=== PATIENT | male | born 1985 | race American Indian/Alaskan Native ===

== ENCOUNTER 2018-08-02 13:07 | Inpatient (IN) | payer OTHER ==
[2018-08-02 13:11] VITALS: BMI 20.8
--- NOTE | 2018-08-02 13:45 | C.PDOC ---
History Of Present Illness 33 y/o male with PMH of MS and depression presents to the ED sent by his primary Dr. Mathias for concerns of MS flare. Pt states he has been feeling overwhelmed and depressed over the last few months because of his MS diagnosis and overwhelming stress at home. States he has thoughts and a plan to hurt himself but is unwilling to disclose the plan. History of one suicide attempt in the past 5-[address] Mathias states that the patient's affect is not typical and she has concerns for worsening of the patient's MS. Admits to alcohol and drug use yesterday. Patient's only physical complaints are lower back pain and left shoulder pain that he states are chronic. Denies HI, hallucinations, seizures, fevers, chills, abdominal pain, chest pain, SOB, nausea, vomiting, weakness, numbness, paresthesias, headache, vision changes, or any other associated symptoms. Time Seen by Provider: 08/02/18 13:17 Chief Complaint (Nursing): Psychiatric Evaluation History Per: Patient History/Exam Limitations: no limitations Past Medical History Reviewed: Historical Data, Nursing Documentation, Vital Signs Vital Signs: Last Vital Signs Temp 97.1 F L 08/02/18 13:15 Pulse 98 H 08/02/18 13:15 Resp 18 08/02/18 13:15 BP 135/86 08/02/18 13:15 Pulse Ox 100 08/02/18 13:15 - Medical History PMH: Multiple Sclerosis Family History: States: Unknown Family Hx - Social History Hx Alcohol Use: Yes Hx Substance Use: Yes - Immunization History Hx Tetanus Toxoid Vaccination: No Hx Influenza Vaccination: No Hx Pneumococcal Vaccination: No Review Of Systems Except As Marked, All Systems Reviewed And Found Negative. Constitutional: Negative for: Fever, Chills Eyes: Negative for: Vision Change ENT: Negative for: Throat Pain, Throat Swelling Cardiovascular: Negative for: Chest Pain, Palpitations, Light Headedness Respiratory: Negative for: Cough, Shortness of Breath Gastrointestinal: Negative for: Nausea, Vomiting, Abdominal Pain Genitourinary: Negative for: Dysuria, Frequency Musculoskeletal: Positive for: Shoulder Pain, Back Pain. Negative for: Neck Pain Skin: Negative for: Rash Neurological: Negative for: Weakness, Numbness, Headache, Dizziness Physical Exam - Physical Exam Appears: Well, No Acute Distress Skin: Normal Color, Warm, Dry Head: Atraumatic, Normacephalic Eye(s): bilateral: Normal Inspection, PERRL, EOMI Nose: Normal Throat: Normal Neck: Normal, Normal ROM, Supple, No Other (no meningeal signs) Cardiovascular: Rhythm Regular Respiratory: Normal Breath Sounds Gastrointestinal/Abdominal: Normal Exam, Soft, No Tenderness Back: Normal Inspection, No Vertebral Tenderness, No Muscle Spasm, No Paraspinal Tenderness Extremity: Normal ROM, No Tenderness, Capillary Refill (<2s), No Deformity, Other (strength 4/5 bilaterally all extremities) Extremity: Bilateral: Atraumatic, Normal Color And Temperature, Normal ROM Pulses: Left Radial: Normal, Right Radial: Normal Neurological/Psych: Oriented x3, Normal Speech, Normal Cranial Nerves, No Normal Motor (4/5 strength all extremities bilaterally), Normal Sensation Gait: Steady ED Course And Treatment - Laboratory Results Result Diagrams: 08/02/18 14:33 08/02/18 14:33 ECG: Viewed By Me ECG Rhythm: Sinus Rhythm ECG Interpretation: No Acute Changes Interpretation Of ECG: Rate 77; NSR with early repolarization; LVH; Normal Intervals; No STEMI or other signs of acute ischemia Rate From EC O2 Sat by Pulse Oximetry: 100 Pulse Ox Interpretation: Normal - Radiology CXR: Viewed By Me, Read By Radiologist CXR Interpretation: Yes: No Acute Disease Medical Decision Making Medical Decision Making: Initial Plan: * CBC, CMP * Alcohol, tylenol, salicylate levels * UA * UDS * PES evaluation [address] Brooke, ED director, who states patient is to be admitted to medic al floor under Dr. Liang with 1:1, with consults to Dr. Rosales, psychiatry, and Dr. De Anda, neurology. Advised no further neurologic workup at this time, imaging deferred to neurology. 1530 Labwork reviewed, significant for mild hypokalemia [replaced with 20mEq KCl] and low TSH, otherwise unremarkable Pt pending UA and UDS for admission. Dr. Brooke states patient can be admitted pending results. [address] Liang [address] Liang [address] Liang, who accepts patient for inpatient admission for MS flare and suicidal ideations. Requests head CT and brain MRI, as well as for me to call neurology. Imaging will be followed by admitting team. [address] De Anda for consult at Dr. Liang's request 1645 EKG shows findings suspicious for early repolarization Per Dr. Liang's request, troponin ordered and spoke with code heart network relations consultant Dr. Oneil, who will review EKG. Also requested admission upgrade to telemetry. 1655 Dr. Oneil read EKG as early repolarization and LVH, no STEMI [address] De Anda regarding consult. Disposition - Disposition Disposition: HOSPITALIZED Disposition Time: 16:00 Condition: STABLE - Clinical Impression Clinical Impression: Suicidal ideations, Multiple sclerosis
[2018-08-02 14:43] LABS: BASO # 0.1 K/uL (0.0-0.2); BASO % 0.7 % (0.0-2.0); EOS % 0.4 % (0.0-4.0); HEMOGLOBIN 14.9 g/dL (12.0-18.0); LYMPH # 1.5 K/uL (1.0-4.3); LYMPH % 16.6 % (20.0-40.0); MEAN CORPUSCULAR HEMOGLOBIN 27.6 pg (27.0-31.0); MEAN CORPUSCULAR HGB CONC 31.7 g/dL (33.0-37.0); MEAN PLATELET VOLUME 7.9 fL (7.2-11.7); MONO # 0.2 K/uL (0.0-0.8); MONO % 1.9 % (0.0-10.0); NEUT % 80.4 % (50.0-75.0); NRBC % 0.1 % (0.0-2.0); RBC 5.38 Mil/uL (4.40-5.90); RED CELL DISTRIBUTION WIDTH 14.7 % (11.5-14.5)
[2018-08-02 14:45] LABS: MEAN CELL VOLUME 87.2 fL (80.0-94.0); WHITE BLOOD COUNT 8.8 K/uL (4.8-10.8)
[2018-08-02 14:51] LABS: ACETAMINOPHEN < 10.0 ug/mL (10.0-30.0); SALICYLATE < 1.0 mg/dL 1
[2018-08-02 14:53] LABS: ALB/GLOB RATIO 1.7 (1.0-2.1); ALBUMIN 5.1 g/dL (3.5-5.0); ALT/SGPT 23 U/L (21-72); AST/SGOT 37 U/L (17-59); BLOOD UREA NITROGEN 13 mg/dL (9-20); CALCIUM 9.7 mg/dl (8.6-10.4); GFR NON-AFRICAN AMERICAN > 60
[2018-08-02] MEDS ORDERED: Potassium Chloride 20 mEq ER Tab PO STA (15:07)
[2018-08-02] MEDS ORDERED: Potassium Chloride 20 mEq ER Tab PO ONE (15:18)
--- NOTE | 2018-08-02 16:12 | CP.PCM.HP ---
<DuLakisha WanderWilliams - Last Filed: 08/02/18 18:02> History of Present Illness - History of Present Illness History of Present Illness: 33 year old male with past medical history of MS as noted below presents to the ER for thoughts of suicide. Patient states for the past 6 months he has been fe eling depressed however today he had a plan in place. He states his plan was to jump off a frances. He states yesterday he had an argument with his significant other. He states he has been feeling like less of a man and he feels like his 7 year old child may be seeing him a negative light. Patient states because of those feelings he has been drinking so he drank 3 beers and took 2 Xanax tablets to try and numb his feelings and has been detaching himself from his mother and kids. Patient denies chest pain, shortness of breath, palpations, nausea, vomiting, diarrhea, constipation, fever or chills. PMD: Dr. Mathias Past Medical History: Primary Progressive Multiple Sclerosis (diagnosed in 3); Chronic back pain; Recurrent UTI; recurrent spastic bladder; anxiety; depression Past Surgical History: Incision and drainage abscess 2017; Hammertoes 2017 Family History: non-contributory Medications: Ocrevus 600mg IV infusion every 6 months; Baclofen 10mg bid; Xanax 0.5mg bid prn for anxiety; Percocet 1 tablet q4prn for chronic pain Social History: Lives with mom; has 2 kids; currently not working; former smoker; past 6 months drinking 3 beers per day (12 oz); smokes marijuana Present on Admission - Present on Admission Any Indicators Present on Admission: No Review of Systems - Constitutional Constitutional: absent: Chills, Fever, Headache - Cardiovascular Cardiovascular: absent: Chest Pain, Dyspnea, Leg Edema, Lightheadedness, Palpitations - Respiratory Respiratory: absent: Cough, Dyspnea - Gastrointestinal Gastrointestinal: absent: Constipation, Diarrhea, Nausea, Vomiting - Musculoskeletal Additional comments: chronic back and shoulder pain - Neurological Neurological: absent: Dizziness, Headaches - Psychiatric Psychiatric: Depression, Suicidal Ideation. absent: Auditory Hallucinations, Confusion, Hallucinations, Homicidal Ideation, Tactile Hallucinations Past Patient History - Past Social History Smoking Status: Heavy Smoker > 10 Cigarettes Daily - NEUROLOGICAL Hx Multiple Sclerosis: Yes - PSYCHIATRIC Hx Substance Use: Yes - SURGICAL HISTORY Hx Surgeries: No - ANESTHESIA Hx Anesthesia: No Meds Allergies/Adverse Reactions: Allergies Allergy/AdvReac Type Severity Reaction Status Date / Time teriflunomide Allergy Verified 08/02/18 13:22 Physical Exam - Constitutional Appears: No Acute Distress - Head Exam Head Exam: ATRAUMATIC, NORMAL INSPECTION - Eye Exam Eye Exam: EOMI, Normal appearance, PERRL Pupil Exam: NORMAL ACCOMODATION - ENT Exam ENT Exam: Mucous Membranes Moist - Respiratory Exam Respiratory Exam: Clear to Auscultation Bilateral, NORMAL BREATHING PATTERN - Cardiovascular Exam Cardiovascular Exam: REGULAR RHYTHM, +S1, +S2 - GI/Abdominal Exam GI & Abdominal Exam: Normal Bowel Sounds, Soft. absent: Tenderness - Extremities Exam Extremities exam: Positive for: normal inspection. Negative for: pedal edema, tenderness - Neurological Exam Neurological exam: Alert, CN II-XII Intact, Oriented x3 - Expanded Neurological Exam Expanded Patient oriented to: person, place, time Neuro motor strength exam: Left Upper Extremity: 4, Right Upper Extremity: 4, Left Lower Extremity: 4, Right Lower Extremity: 4 Coma Scale Eye Opening: SPONTANEOUS Coma Scale Motor Response: OBEYS COMMANDS Coma Scale Verbal: Oriented Coma Scale Total: 15 - Psychiatric Exam Psychiatric exam: Depressed, Suicidal Ideation - Skin Skin Exam: Normal Color Results - Vital Signs Recent Vital Signs: Last Vital Signs Temp 97.1 F L 08/02/18 13:15 Pulse 98 H 08/02/18 13:15 Resp 18 08/02/18 13:15 BP 135/86 08/02/18 13:15 Pulse Ox 100 08/02/18 15:56 - Labs Result Diagrams: 08/02/18 14:33 08/02/18 14:33 Labs: Laboratory Results - last 24 hr 08/02/18 08/02/18 08/02/18 14:33 14:33 14:33 WBC 8.8 D RBC 5.38 Hgb 14.9 Hct 47.0 MCV 87.2 D MCH 27.6 MCHC 31.7 L RDW 14.7 H Plt Count 242 MPV 7.9 Neut % (Auto) 80.4 H Lymph % (Auto) 16.6 L [place] % (Auto) 1.9 Eos % (Auto) 0.4 Baso % (Auto) 0.7 Neut # (Auto) 7.0 Lymph # (Auto) 1.5 [place] # (Auto) 0.2 Eos # (Auto) 0.0 Baso # (Auto) 0.1 Sodium 139 Potassium 3.5 L Chloride 100 Carbon Dioxide 28 Anion Gap 14 BUN 13 Creatinine 1.0 Est GFR ( Amer) > 60 Est GFR (Non-Af Amer) > 60 Random Glucose 75 Calcium 9.7 Phosphorus 2.9 Magnesium 2.2 Total Bilirubin 0.6 AST 37 ALT 23 Alkaline Phosphatase 91 Total Protein 8.0 Albumin 5.1 H Globulin 3.0 Albumin/Globulin Ratio 1.7 TSH 3rd Generation 0.43 L Salicylates < 1.0 Acetaminophen < 10.0 L Alcohol, Quantitative 24 H Assessment & Plan - Assessment and Plan (Free Text) Assessment: Possible MS Flare/History of Primary Progressive MS Patient was diagnosed in 2012 - Neurology Consult: Dr. De Anda --> help appreciated - Neurochecks q4h - Imaging: * Head CT: No acute parenchymal, subarachnoid or extra-axial hemorrhage. (please see full report) * Brain MRI (11/23/12): No acute intracranial abnormalities. Multiple lesions throughout cerebral hemispheres, greatest in parietal lobes bilaterally, near the vertex, as well as right middle cerebellar peduncle, corpus callosum, as well as left thalamus, some of which demonstrates peripheral enhancement. Findings are concerning for metastatic disease, with demyelinating lesions of multiple sclerosis some of which in active phase also considered. * f/u Brain MRI w/w/o contrast - Patient's baseline per PMD, Dr. Mathias - normally very gentle, pleasant; Patient told PMD today - his brain felt foggy and doesn't have clear vision - Patient takes Ocrevus 600mg IV every 6 months History of Depression/Anxiety - Suicide Precautions - 1:1 - Psych Consult: Dr. Lara --> help appreciated - Xanax 0.5mg bid prn for anxiety/alcohol withdrawal Alcohol Use - Seizure Precautions - Alcohol Level 24; UDS + Cannabinoids and Benzodiazepines - Medications: * Thiamine 100mg po daily * Folic Acid 1mg po daily * Multivitamin po daily * Xanax 0.5mg bid prn for anxiety/alcohol withdrawal Abnormal EKG - EKG: repolarization in lead II which was confirmed with casting wheel operator Dr. Oneil - Trop negative - f/u SANDRA and EKG x2 - f/u ECHO History of Recurrent UTI/Spastic Bladder - UA + WBC, Leukocyte esterase; negative nitrate - f/u urine culture - Patient was recently treated (07/21/18) for UTI - E.Coli with Cefdinir 300mg po bid for 10 days - Straight cath prn - Continue home medication: * Baclofen 10mg po bid History of Chronic spasticity/Chronic Body Pain Secondary to MS - Continue home medications: * Percocet 1 tablet q4prn for pain -hold Prophylaxis - GI prophylaxis not indicated - SCDs - Heparin 5,000 units q8 SC - Fall Precaution - PT/OT Case discussed with Dr. Azul Sandy PGY-2 <Lotus Liang V - Last Filed: 08/03/18 08:31> Results - Vital Signs Recent Vital Signs: Last Vital Signs Temp 98.4 F 08/02/18 23:25 Pulse 70 08/03/18 01:00 Resp 20 08/02/18 23:25 BP 116/74 08/02/18 23:25 Pulse Ox 97 08/02/18 23:25 - Labs Result Diagrams: 08/02/18 14:33 08/02/18 14:33 Labs: Laboratory Results - last 24 hr 08/02/18 08/02/18 08/02/18 14:33 14:33 14:33 WBC 8.8 D RBC 5.38 Hgb 14.9 Hct 47.0 MCV 87.2 D MCH 27.6 MCHC 31.7 L RDW 14.7 H Plt Count 242 MPV 7.9 Neut % (Auto) 80.4 H Lymph % (Auto) 16.6 L [place] % (Auto) 1.9 Eos % (Auto) 0.4 Baso % (Auto) 0.7 Neut # (Auto) 7.0 Lymph # (Auto) 1.5 [place] # (Auto) 0.2 Eos # (Auto) 0.0 Baso # (Auto) 0.1 Sodium 139 Potassium 3.5 L Chloride 100 Carbon Dioxide 28 Anion Gap 14 BUN 13 Creatinine 1.0 Est GFR ( Amer) > 60 Est GFR (Non-Af Amer) > 60 Random Glucose 75 Calcium 9.7 Phosphorus 2.9 Magnesium 2.2 Total Bilirubin 0.6 AST 37 ALT 23 Alkaline Phosphatase 91 Total Creatine Kinase CK-MB (Mass) Troponin I Total Protein 8.0 Albumin 5.1 H Globulin 3.0 Albumin/Globulin Ratio 1.7 TSH 3rd Generation 0.43 L Urine Color Urine Clarity Urine pH Ur Specific [place] Urine Protein Urine Glucose (UA) Urine Ketones Urine Blood Urine Nitrate Urine Bilirubin Urine Urobilinogen Ur Leukocyte Esterase Urine WBC (Auto) Urine RBC (Auto) Ur Squamous Epith Cells Urine Bacteria Salicylates < 1.0 Urine Opiates Screen Urine Methadone Screen Acetaminophen < 10.0 L Ur Barbiturates Screen Ur Phencyclidine Scrn Ur Amphetamines Screen U Benzodiazepines Scrn U Oth Cocaine Metabols U Cannabinoids Screen Alcohol, Quantitative 24 H 08/02/18 08/02/18 08/02/18 16:41 16:52 16:52 WBC RBC Hgb Hct MCV MCH MCHC RDW Plt Count MPV Neut % (Auto) Lymph % (Auto) [place] % (Auto) Eos % (Auto) Baso % (Auto) Neut # (Auto) Lymph # (Auto) [place] # (Auto) Eos # (Auto) Baso # (Auto) Sodium Potassium Chloride Carbon Dioxide Anion Gap BUN Creatinine Est GFR ( Amer) Est GFR (Non-Af Amer) Random Glucose Calcium Phosphorus Magnesium Total Bilirubin AST ALT Alkaline Phosphatase Total Creatine Kinase CK-MB (Mass) Troponin I < 0.0120 Total Protein Albumin Globulin Albumin/Globulin Ratio TSH 3rd Generation Urine Color Yellow Urine Clarity Clear Urine pH 6.0 Ur Specific [place] 1.010 Urine Protein Negative Urine Glucose (UA) Normal Urine Ketones Negative Urine Blood Negative Urine Nitrate Negative Urine Bilirubin Negative Urine Urobilinogen Normal Ur Leukocyte Esterase 1+ H Urine WBC (Auto) 11 H Urine RBC (Auto) 1 Ur Squamous Epith Cells 1 Urine Bacteria Occ H Salicylates Urine Opiates Screen Negative Urine Methadone Screen Negative Acetaminophen Ur Barbiturates Screen Negative Ur Phencyclidine Scrn Negative Ur Amphetamines Screen Negative U Benzodiazepines Scrn Positive U Oth Cocaine Metabols Negative U Cannabinoids Screen Positive H Alcohol, Quantitative 08/03/18 00:37 WBC RBC Hgb Hct MCV MCH MCHC RDW Plt Count MPV Neut % (Auto) Lymph % (Auto) [place] % (Auto) Eos % (Auto) Baso % (Auto) Neut # (Auto) Lymph # (Auto) [place] # (Auto) Eos # (Auto) Baso # (Auto) Sodium Potassium Chloride Carbon Dioxide Anion Gap BUN Creatinine Est GFR ( Amer) Est GFR (Non-Af Amer) Random Glucose Calcium Phosphorus Magnesium Total Bilirubin AST ALT Alkaline Phosphatase Total Creatine Kinase 107 CK-MB (Mass) 0.35 Troponin I < 0.0120 Total Protein Albumin Globulin Albumin/Globulin Ratio TSH 3rd Generation Urine Color Urine Clarity Urine pH Ur Specific [place] Urine Protein Urine Glucose (UA) Urine Ketones Urine Blood Urine Nitrate Urine Bilirubin Urine Urobilinogen Ur Leukocyte Esterase Urine WBC (Auto) Urine RBC (Auto) Ur Squamous Epith Cells Urine Bacteria Salicylates Urine Opiates Screen Urine Methadone Screen Acetaminophen Ur Barbiturates Screen Ur Phencyclidine Scrn Ur Amphetamines Screen U Benzodiazepines Scrn U Oth Cocaine Metabols U Cannabinoids Screen Alcohol, Quantitative Attending/Attestation - Attestation I have personally seen and examined this patient.: Yes I have fully participated in the care of the patient.: Yes I have reviewed all pertinent clinical information: Yes Notes (Text): This is a 33-year-old male past medical history of per primary progressive multiple sclerosis diagnosed in 2012, treated with octreotide is 2 times a year 6 months apart, recent baclofen from 10 mg to 20 mg once a day over the past month associate intractable back pain secondary to MS which she is currently on Percocet as needed, associate anxiety which she takes Xanax as needed as well as recurrent UTI secondary to spastic bladder secondary to MS wearing he is completed recent antibiotic therapy per his PMD. I spoke with with his primary care doctor associate with the [facility] downstairs in the hospital who reported that she did receive a phone call from the patient this morning indicated that he was not feeling well, that he was brain felt foggy and he felt that he that he is not safe around him she was advised patient to come to the emergency room today. She reports he is normally a very gentle in his hospital been followed very kind. She has been managing his MS for quite some time. Patient was seen by me at bedside in bed 11 in the emergency room approximately 4 PM. Patient reports that he had he felt suicidal, that he felt like jumping off a frances today, reports that his he and his partner had some type of fight yesterday evening would not provide details as well as he feels his 7-year-old son is being brain biopsy washed by her and he is trying to detach himself from both his children as well as his mother. 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 He also reports over the past 6 months he has been more or less drinking about 3 beers a day and increasing his alcohol intake. And more or less he is been not been feeling like himself for the past 3 days. He reports when his MS acts up he usually feels it in his low back in terms of spasticity.I did ask her in terms of if he felt any fogginess and he reports he that he cannot see that he does not have a clear vision". He does have noted visual defects from MS. Per discussion with PMD. At time of admission patient has gone up from CT had to receive a baseline he will likely need a repeat brain MRI with and without contrast given his history of MS to see if there is any worsening of his MS symptoms there is a prior brain MRI from 2012 available in the EMR. We did place him on suicide watch with a one-to-one. Both neuro and psych follow-up psych consulted. Also to note patient's EKG not ed for early repolarization I did ask the ED PA to speak with the code heart Dr. Oneil who noted it is early repolarization it is my STEMI we will monitor him on telemetry for 24 hours with repeat EKG normally as well as echo though he does not have any cardiac risk factors though he is a young -[place] male. Neurochecks every 4 PT OT eval fall precautions I did speak with PMD following our discussion with the patient who noted that this is not like the patient. He she will come and see him either sometime today or early in the morning Discussed admitting orders with resident at time of admission. Discussed assessment plan with resident at time of admission.
[2018-08-02 17:07] LABS: SQUAMOUS EPITHIAL 1 /hpf (0-5); URINE BACTERIA OCC (<OCC); URINE BILIRUBIN NEGATIVE (NEGATIVE); URINE BLOOD NEGATIVE (NEGATIVE); URINE CLARITY Clear (Clear); URINE COLOR Yellow (YELLOW); URINE GLUCOSE (UA) NORMAL (Normal); URINE LEUKOCYTE ESTERASE 1+ Leu/uL (Negative); URINE PROTEIN NEGATIVE (NEGATIVE); URINE UROBILINOGEN NORMAL mg/dL (0.2-1.0)
--- NOTE | 2018-08-02 17:20 | RAD ---
Date of service: 08/02/2018 HISTORY: admission COMPARISON: Chest x-ray 11/27/2016 TECHNIQUE: Chest one view . FINDINGS: LUNGS: No focal consolidation is seen. PLEURA: No pleural effusion is identified. CARDIOVASCULAR: Heart size is within normal limits. No atherosclerotic calcification present. OSSEOUS STRUCTURES: No acute fracture identified. VISUALIZED UPPER ABDOMEN: Unremarkable. OTHER FINDINGS: None. IMPRESSION: No acute cardiopulmonary process seen.
[2018-08-02 17:24] LABS: BARBITURATES, UR NEGATIVE (NEGATIVE); OPIATES, UR NEGATIVE (NEGATIVE); PHENCYCLIDINE, UR NEGATIVE (NEGATIVE)
[2018-08-02 17:28] LABS: BENZODIAZEPINES, UR POSITIVE (NEGATIVE)
[2018-08-02] MEDS ORDERED: Oxycodone/Acetaminophen 5/325 mg Tab PO PRN (17:29)
--- NOTE | 2018-08-02 17:31 | CT ---
Date of service: 08/02/2018 PROCEDURE: CT HEAD WITHOUT CONTRAST. HISTORY: headache COMPARISON: Comparison made with MRI brain 11/23/12 TECHNIQUE: Axial computed tomography images were obtained through the head/brain without intravenous contrast. Radiation dose: Total exam DLP = 1086.99 mGy-cm. This CT exam was performed using one or more of the following dose reduction techniques: Automated exposure control, adjustment of the mA and/or kV according to patient size, and/or use of iterative reconstruction technique. FINDINGS: HEMORRHAGE: No acute parenchymal, subarachnoid or extra-axial hemorrhage. BRAIN: There are a few small focal areas of low-attenuation scattered about the deep and subcortical white matter of both cerebral hemispheres.. There is also a small focal area of low attenuation in the left perifrontal horn white matter. These changes are nonspecific however on consider follow-up these changes are of nonspecific and of uncertain etiology. Given the patient's age differential diagnosis would include a demyelinating disease process such as multiple sclerosis as chronic sequela small vessel disease would be less likely though not excluded. Post infectious/inflammatory etiologies or sequela migraine headaches to be considered.. Follow-up of pre and post-contrast MRI of the brain recommended. Mild generalized volume loss. VENTRICLES: No obstructive hydrocephalus. CALVARIUM: Calvarium intact. PARANASAL SINUSES: Unremarkable as visualized. No significant inflammatory changes. MASTOID AIR CELLS: Unremarkable as visualized. No inflammatory changes. OTHER FINDINGS: None. IMPRESSION: There are a few small focal areas of low-attenuation scattered about the deep and subcortical white matter of both cerebral hemispheres.. There is also a small focal area of low attenuation in the left perifrontal horn white matter. These changes are nonspecific however on consider follow-up these changes are of nonspecific and of uncertain etiology. Given the patient's age differential diagnosis would include a demyelinating disease process such as multiple sclerosis as chronic sequela small vessel disease would be less likely though not excluded. Post infectious/inflammatory etiologies or sequela migraine headaches to be considered.. Follow-up of pre and post-contrast MRI of the brain recommended. Mild generalized volume loss.
[2018-08-03 01:07] LABS: CK-MB 0.35 ng/mL (0.0-3.38)
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
[2018-08-03] MEDS ORDERED: Gadodiamide 287 MG/ML VIAL (15ML) IV ONE (09:40)
--- NOTE | 2018-08-03 09:43 | PCM.PSYCH ---
Initial Psychiatric Evaluation - Initial Psychiatric Evaluation Type of Admission: Voluntary Legal Status: Capacity Chief Complaint (in patient's own words): I want to .' History of Present Illness and Precipitating Events: 33 year old male with past medical history of MS as noted below presents to the ER for thoughts of suicide. Patient states for the past 6 months he has been feeling depressed however today he had a plan in place. He states his plan was to jump off a frances. Today psychiatry was consulted. He appears disorganized and internally preoccupied. He remained superficially cooperative but guarded about the details. He states he wanted to jump off a bridge and currently says that if he were able to get atop a building he can see through the window, he would jump off of it. He repeatedly mentions that there are other people more deserving of life and that his own life is a waste. Prior to admission, he called a friend to drive him to the hospital and patient told his friend to keep patient's car. Patient feels that his MS is a punishment due to kharma and he is concerned that he will go to [facility]. He says MS is ruining his life and it is more than he can bare at this time. He reports that his sense of purpose is often derived from his family and he feels he has been betrayed by his son and his son's mother since they have been hiding things (their perceptions) from him. Patient is feels his illness is leading him to fail as a man (as a protector, provider, and lover). He has had suicidal ideation in the past; 3-4 years ago, he took himself to a bridge, but he was afraid to take the final action and he resolved to just try harder to work through the medical and social problems he has been facing. Patient reports having low energy, feeling guilty, sleeping 2 hours a night, reduced appetite, weight loss, feeling hopeless and worthless. He reports of hearing voices and admits to talking to himself. He also states that, from a young age, he has felt that faces on TV screens are staring back at him. Patient is also concerned that the physician who manages his MS, at [facility], is going to retire. Social: Patient smokes marijuana "a lot". he has increased his tobacco use to s moking 1PPD over the last 3 weeks (previously half a pack), and he drinks 24 bottles of beer weekly. Patient lives at mother's but feels uncomfortable there as he cannot smoke marijuana there, so he spends much of his time on the streets and in his car. Patient denies use of other drugs. Patient has access to fire arms at home. 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 Current Medications: Active Medications Generic Name Dose Route Start Last Admin Trade Name Freq PRN Reason Stop Dose Admin Alprazolam 0.5 mg 08/02/18 18:00 08/02/18 20:52 Xanax PO 0.5 mg BID PRN Administration Anxiety Baclofen 10 mg 08/02/18 18:00 08/02/18 20:51 Lioresal PO 10 mg BID [facility] Administration Folic Acid 1 mg 08/03/18 10:00 Folic Acid PO DAILY [facility] Heparin Sodium (Porcine) 5,000 units 08/02/18 22:00 08/03/18 06:26 Heparin SC Not Given Q8 [facility] Multivitamins 1 tab 08/03/18 10:00 Hexavitamin PO DAILY [facility] Oxycodone/Acetaminophen 1 tab 08/02/18 17:29 Percocet 5/325 Mg Tab PO 08/05/18 20:01 Q4 PRN Pain, moderate (4-7) Thiamine HCl 100 mg 08/03/18 10:00 Vitamin B1 Tab PO DAILY [facility] Past Psychiatric History - Past Psychiatric History Previous Treatment History: None Pertinent Medical Hx (Current Medical&Sleep Prob, Allergies): Allergies Allergy/AdvReac Type Severity Reaction Status Date / Time teriflunomide Allergy Verified 08/02/18 13:22 Alprazolam [Xanax] 08/02/18 Baclofen [Lioresal] 08/02/18 Cholecalciferol (Vitamin D3) [Vitamin D3] 08/02/18 Meloxicam [Mobic] 08/02/18 Ocrelizumab [Ocrevus] 300 mg IV 08/02/18 oxyCODONE/Acetaminophen [Percocet 5/325 mg Tab] 08/02/18 Review of Systems - Review of Systems All systems: reviewed and no additional remarkable complaints except - Psychiatric Psychiatric: Anxiety, Auditory Hallucinations, Irritability, Paranoia, Suicidal Ideation Mental Status Examination - Personal Presentation Personal Presentation: Looks stated age - Affect Affect: Constricted, Depressed - Motor Activity Motor Activity: Psychomotor Retardation - Reliability in Providing Information Reliability in Providing Information: Poor, due to alteration in thoughts, Poor, due to altered mood - Speech Speech: Disorganized - Mood Mood: Depressed, Anxious - Formal Thought Process Formal Thought Process: Hallucinations, Delusions, Paranoia, Loosening of associations - Hallucinations/Delusions Hallucinations: Visual, Auditory Delusions: Persecution - Obsessions/Compulsions Obsessions: No Compulsions: No - Cognitive Functions Orientation: Person, Place, Situation, Time Sensorium: Alert Attention/Concentration: Attentive Abstract Thinking: Butler Estimate of Intelligence: Below average Judgement: Imparied, as evidence by: Poor judgement, Imparied, as evidence by: Lack of insight into illness - Risk Risk: Suicidal, Diminished functioning - Strength & Assets Inventory Strength & Assets Inventory: Family support DSM 5 DX - DSM 5 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
[2018-08-03] MEDS: Multiple Vitamins Tab PO SCH (10:32)
[2018-08-03 11:36] VITALS: RESP 20
[2018-08-03 11:52] LABS: BASO # 0.1 K/uL (0.0-0.2); BASO % 1.2 % (0.0-2.0); EOS % 0.8 % (0.0-4.0); LYMPH # 1.6 K/uL (1.0-4.3); LYMPH % 28.6 % (20.0-40.0); MEAN CELL VOLUME 87.5 fL (80.0-94.0); MEAN CORPUSCULAR HEMOGLOBIN 27.4 pg (27.0-31.0); MEAN CORPUSCULAR HGB CONC 31.3 g/dL (33.0-37.0); MEAN PLATELET VOLUME 8.3 fL (7.2-11.7); MONO # 0.4 K/uL (0.0-0.8); MONO % 6.7 % (0.0-10.0); NEUT # 3.4 K/uL (1.8-7.0); NEUT % 62.7 % (50.0-75.0); NRBC % 0.4 % (0.0-2.0); RBC 5.09 Mil/uL (4.40-5.90); RED CELL DISTRIBUTION WIDTH 14.8 % (11.5-14.5); WHITE BLOOD COUNT 5.5 K/uL (4.8-10.8)
[2018-08-03 12:17] LABS: ALB/GLOB RATIO 1.6 (1.0-2.1); ALBUMIN 4.4 g/dL (3.5-5.0); ALT/SGPT 20 U/L (21-72); AST/SGOT 30 U/L (17-59); BLOOD UREA NITROGEN 15 mg/dL (9-20); CALCIUM 9.7 mg/dl (8.6-10.4); GFR NON-AFRICAN AMERICAN > 60
--- NOTE | 2018-08-03 12:26 | CARD ---
APPROVED REPORT Date of service: 08/02/2018 EKG Measurement Heart [id number] <Conclusion> Normal sinus rhythm Voltage criteria for left ventricular hypertrophy Early repolarization Abnormal ECG
--- NOTE | 2018-08-03 12:57 | MRI ---
Date of service: 08/03/2018 PROCEDURE: MRI BRAIN WITH AND WITHOUT CONTRAST HISTORY: suicidal ideation, possible multiple sclerosis flare COMPARISON: CT head without contrast from 08/02/2018 and MRI brain without and with intravenous contrast from 11/23/2012. TECHNIQUE: Multiplanar, multisequence MR images of the brain were obtained with and without intravenous contrast enhancement. 12 ml Omniscan was injected intravenously. FINDINGS: HEMORRHAGE: None DWI: No evidence of an acute or early subacute infarction. BRAIN PARENCHYMA: Since the prior examination, there is interval decrease in size of demyelinating plaque in the right corpus callosum with no evidence of enhancement or restricted diffusion. The demyelinating plaque in the left centrum semiovale has also decreased in size with no evidence of enhancement or restricted diffusion on today's examination. There is redemonstration of multiple ovoid subcortical lesions in the supratentorial white matter which appear slightly less conspicuous since the prior examination. Confluent periventricular lesions are essentially stable. There are no infratentorial lesions. ENHANCEMENT: No abnormal intracranial enhancement. VENTRICLES: There is mild age-related global parenchymal volume loss and proportionate enlargement of the ventricles and cortical sulci. CRANIUM: There is normal bone marrow signal pattern. ORBITS: Grossly unremarkable. PARANASAL SINUSES/MASTOIDS: There is a small retention cyst/polyp in the left maxillary sinus. The remaining included paranasal sinuses and mastoid air cells are clear. VASCULAR SYSTEM: There are normal signal voids in the larger intracranial arteries. OTHER FINDINGS: None . IMPRESSION: 1. Interval mild improvement in findings in this known multiple sclerosis. Redemonstration of multiple subcortical and periventricular demyelinating plaques which appear less conspicuous in the subcortical white matter. Interval significant decrease in size of previously noted active demyelinating plaques in the right paramedian corpus callosum and left centrum semiovale. No evidence for active demyelination on the current examination. 2. Mild global parenchymal volume loss.
[2018-08-03 13:24] LABS: FOLATE 8.1 ng/mL
[2018-08-03] MEDS ORDERED: Pneumococcal 23-Valent Vaccine IM ONE (14:00)
[2018-08-03] MEDS: Oxycodone/Acetaminophen 5/325 mg Tab PO PRN (16:25)
--- NOTE | 2018-08-03 16:36 | CP.PCM.CON ---
History of Present Illness - History of Present Illness History of Present Illness: Neurology Consultation Note: Consult requested by Dr. Liang Mr. Best is a 33-year-old man with a past medical history of Multiple S clerosis, who is treated by Dr. Sher, and states that he came to the hospital for suicidal ideation. He does not have any new focal weakness, new visual changes, or sensory changes. He admits to having a recent UTI and uses marijuana daily. Review of Systems - Review of Systems All systems: reviewed and no additional remarkable complaints except Past Patient History - Past Social History Smoking Status: Current Some Days Smoker - NEUROLOGICAL Hx Multiple Sclerosis: Yes - MUSCULOSKELETAL/RHEUMATOLOGICAL Hx Falls: No - PSYCHIATRIC Hx Substance Use: Yes - SURGICAL HISTORY Hx Surgeries: No - ANESTHESIA Hx Anesthesia: No Meds Allergies/Adverse Reactions: Allergies Allergy/AdvReac Type Severity Reaction Status Date / Time teriflunomide Allergy Verified 08/02/18 13:22 - Medications Medications: Current Medications Alprazolam (Xanax) 0.5 mg PO BID PRN PRN Reason: Anxiety Last Admin: 08/03/18 10:32 Dose: 0.5 mg Baclofen (Lioresal) 10 mg PO BID [facility] [place] Last Admin: 08/03/18 10:32 Dose: 10 mg Folic Acid (Folic Acid) 1 mg PO DAILY [facility] [place] Last Admin: 08/03/18 10:32 Dose: 1 mg Heparin Sodium (Porcine) (Heparin) 5,000 units SC Q8 [facility] [place] Last Admin: 08/03/18 13:09 Dose: Not Given Influenza Virus Vaccine (Flucelvax Quad [id number] Syr) 60 mcg IM .ONCE ONE Stop: 08/04/18 14:01 Multivitamins (Hexavitamin) 1 tab PO DAILY [facility] [place] Last Admin: 08/03/18 10:32 Dose: 1 tab Oxycodone/Acetaminophen (Percocet 5/325 Mg Tab) 1 tab PO Q4 PRN PRN Reason: Pain, moderate (4-7) Stop: 08/05/18 20:01 Oxycodone/Acetaminophen (Percocet 5/325 Mg Tab) 1 tab PO Q4H PRN PRN Reason: Pain, moderate (4-7) Stop: 08/06/18 16:01 Last Admin: 08/03/18 16:25 Dose: 1 tab Thiamine HCl (Vitamin B1 Tab) 100 mg PO DAILY [facility] [place] Last Admin: 08/03/18 10:32 Dose: 100 mg Physical Exam - Constitutional Appears: Well - Head Exam Head Exam: ATRAUMATIC, NORMAL INSPECTION, NORMOCEPHALIC - Eye Exam Eye Exam: EOMI, Normal appearance, PERRL Pupil Exam: NORMAL ACCOMODATION, PERRL - ENT Exam ENT Exam: Mucous Membranes Moist, Normal Exam - Neck Exam Neck exam: Positive for: Normal Inspection - Respiratory Exam Respiratory Exam: Clear to Auscultation Bilateral, NORMAL BREATHING PATTERN - Cardiovascular Exam Cardiovascular Exam: REGULAR RHYTHM - GI/Abdominal Exam GI & Abdominal Exam: Normal Bowel Sounds, Soft. absent: Tenderness - Rectal Exam Rectal Exam: NORMAL INSPECTION - Exam Exam: Circumcision, NORMAL INSPECTION External exam: NORMAL EXTERNAL EXAM Speculum exam: NORMAL SPECULUM EXAM Bimanual exam: NORMAL BIMANUAL EXAM - Extremities Exam Extremities exam: Positive for: normal inspection - Back Exam Back exam: NORMAL INSPECTION - Neurological Exam Neurological exam: Abnormal Gait, Alert, CN II-XII Intact, Oriented x3 Additional comments: Speech is clear, somewhat manic. Right upper extremity pronator drift. Sensory changes on bilateral lower extremities, gait is wide-based, coordination appear to be less intact on the left. There is hyper-reflexia throughout. Visual aguiar appear intact. - Psychiatric Exam Psychiatric exam: Normal Affect, Normal Mood - Skin Skin Exam: Dry, Intact, Normal Color, Warm Results - Vital Signs Recent Vital Signs: Last Vital Signs Temp 97.4 F L 08/03/18 15:00 Pulse 75 08/03/18 15:00 Resp 20 08/03/18 15:00 BP 124/85 08/03/18 15:00 Pulse Ox 98 08/03/18 15:00 - Labs Result Diagrams: 08/03/18 11:24 08/03/18 11:24 Labs: Laboratory Results - last 24 hr 08/02/18 08/02/18 08/02/18 16:41 16:52 16:52 WBC RBC Hgb Hct MCV MCH MCHC RDW Plt Count MPV Neut % (Auto) Lymph % (Auto) [place] % (Auto) Eos % (Auto) Baso % (Auto) Neut # (Auto) Lymph # (Auto) [place] # (Auto) Eos # (Auto) Baso # (Auto) Sodium Potassium Chloride Carbon Dioxide Anion Gap BUN Creatinine Est GFR ( Amer) Est GFR (Non-Af Amer) Random Glucose Calcium Phosphorus Magnesium Total Bilirubin AST ALT Alkaline Phosphatase Total Creatine Kinase CK-MB (Mass) Troponin I < 0.0120 Total Protein Albumin Globulin Albumin/Globulin Ratio Vitamin B12 Folate Free T4 Urine Color Yellow Urine Clarity Clear Urine pH 6.0 Ur Specific [place] 1.010 Urine Protein Negative Urine Glucose (UA) Normal Urine Ketones Negative Urine Blood Negative Urine Nitrate Negative Urine Bilirubin Negative Urine Urobilinogen Normal Ur Leukocyte Esterase 1+ H Urine WBC (Auto) 11 H Urine RBC (Auto) 1 Ur Squamous Epith Cells 1 Urine Bacteria Occ H Urine Opiates Screen Negative Urine Methadone Screen Negative Ur Barbiturates Screen Negative Ur Phencyclidine Scrn Negative Ur Amphetamines Screen Negative U Benzodiazepines Scrn Positive U Oth Cocaine Metabols Negative U Cannabinoids Screen Positive H 08/03/18 08/03/18 08/03/18 00:37 11:24 11:24 WBC 5.5 RBC 5.09 Hgb 14.0 Hct 44.6 MCV 87.5 MCH 27.4 MCHC 31.3 L RDW 14.8 H Plt Count 230 MPV 8.3 Neut % (Auto) 62.7 Lymph % (Auto) 28.6 [place] % (Auto) 6.7 Eos % (Auto) 0.8 Baso % (Auto) 1.2 Neut # (Auto) 3.4 Lymph # (Auto) 1.6 [place] # (Auto) 0.4 Eos # (Auto) 0.0 Baso # (Auto) 0.1 Sodium 135 Potassium 4.2 Chloride 102 Carbon Dioxide 27 Anion Gap 10 BUN 15 Creatinine 1.1 Est GFR ( Amer) > 60 Est GFR (Non-Af Amer) > 60 Random Glucose 78 Calcium 9.7 Phosphorus 2.3 L Magnesium 1.9 Total Bilirubin 0.7 AST 30 ALT 20 L Alkaline Phosphatase 82 Total Creatine Kinase 107 CK-MB (Mass) 0.35 Troponin I < 0.0120 Total Protein 7.2 Albumin 4.4 Globulin 2.7 Albumin/Globulin Ratio 1.6 Vitamin B12 870 Folate 8.1 Free T4 Urine Color Urine Clarity Urine pH Ur Specific [place] Urine Protein Urine Glucose (UA) Urine Ketones Urine Blood Urine Nitrate Urine Bilirubin Urine Urobilinogen Ur Leukocyte Esterase Urine WBC (Auto) Urine RBC (Auto) Ur Squamous Epith Cells Urine Bacteria Urine Opiates Screen Urine Methadone Screen Ur Barbiturates Screen Ur Phencyclidine Scrn Ur Amphetamines Screen U Benzodiazepines Scrn U Oth Cocaine Metabols U Cannabinoids Screen 08/03/18 15:52 WBC RBC Hgb Hct MCV MCH MCHC RDW Plt Count MPV Neut % (Auto) Lymph % (Auto) [place] % (Auto) Eos % (Auto) Baso % (Auto) Neut # (Auto) Lymph # (Auto) [place] # (Auto) Eos # (Auto) Baso # (Auto) Sodium Potassium Chloride Carbon Dioxide Anion Gap BUN Creatinine Est GFR ( Amer) Est GFR (Non-Af Amer) Random Glucose Calcium Phosphorus Magnesium Total Bilirubin AST ALT Alkaline Phosphatase Total Creatine Kinase CK-MB (Mass) Troponin I Total Protein Albumin Globulin Albumin/Globulin Ratio Vitamin B12 Folate Free T4 1.05 Urine Color Urine Clarity Urine pH Ur Specific [place] Urine Protein Urine Glucose (UA) Urine Ketones Urine Blood Urine Nitrate Urine Bilirubin Urine Urobilinogen Ur Leukocyte Esterase Urine WBC (Auto) Urine RBC (Auto) Ur Squamous Epith Cells Urine Bacteria Urine Opiates Screen Urine Methadone Screen Ur Barbiturates Screen Ur Phencyclidine Scrn Ur Amphetamines Screen U Benzodiazepines Scrn U Oth Cocaine Metabols U Cannabinoids Screen Assessment & Plan (1) Multiple sclerosis Assessment and Plan: MRI of the brain does not show any acute exacerbation or contrast enhancement. Continue following up with outpatient neurologist for long-term management. No further recommendations at this time. Thank you for this consultation. Status: Chronic
[2018-08-04] MEDS: Oxycodone/Acetaminophen 5/325 mg Tab PO PRN ×2 (06:51→13:38)
[2018-08-04 07:53] LABS: BASO # 0.1 K/uL (0.0-0.2); EOS % 0.8 % (0.0-4.0); HEMOGLOBIN 14.1 g/dL (12.0-18.0); LYMPH % 32.2 % (20.0-40.0); MEAN CELL VOLUME 87.7 fL (80.0-94.0); MEAN CORPUSCULAR HEMOGLOBIN 27.6 pg (27.0-31.0); MEAN CORPUSCULAR HGB CONC 31.5 g/dL (33.0-37.0); MONO # 0.5 K/uL (0.0-0.8); MONO % 8.5 % (0.0-10.0); NEUT # 3.5 K/uL (1.8-7.0); NEUT % 57.5 % (50.0-75.0); RBC 5.11 Mil/uL (4.40-5.90); RED CELL DISTRIBUTION WIDTH 14.9 % (11.5-14.5); WHITE BLOOD COUNT 6.1 K/uL (4.8-10.8)
[2018-08-04 08:14] LABS: ALB/GLOB RATIO 1.6 (1.0-2.1); ALBUMIN 4.4 g/dL (3.5-5.0); ALT/SGPT 25 U/L (21-72); AST/SGOT 31 U/L (17-59); BLOOD UREA NITROGEN 16 mg/dL (9-20); CALCIUM 9.5 mg/dl (8.6-10.4); CK-MB < 0.22 ng/mL (0.0-3.38); GFR NON-AFRICAN AMERICAN > 60
--- NOTE | 2018-08-04 09:37 | CP.PCM.PN ---
<Shyann Quezada - Last Filed: 08/04/18 16:09> Subjective - Date & Time of Evaluation Date of Evaluation: 08/04/18 Time of Evaluation: 09:10 - Subjective Subjective: Patient examined at bedside with 1:1 supervision in room. Patient reports he is feeling better in terms of his spirits and feeling less "down", and is eager to begin tackling things in his life so that he can begin a fresh start. Patient reports he is attempting to eat more despite decreased appetitie since stopping marijuana treatment upon admission. He reports concern regarding treatment of a previously diagnosed UTI; however currently denies dysuria, increased frequency or urgency. Conversation had with patient regarding plan to transfer to psych once medically stable. Denies headache, dizziness, abdominal pain, nausea. On subsequent visit, pt reported visit with Dr. Lara; pt reports he felt he reacted to Dr. Lara's questions regarding his admission initially to medicine and not psych. Pt reports he told Dr. Lara he did not want to stay the 2 days as ordered, however when discussed later, pt reports he is amenable to psych treatment, that he was just emotionally reactive to his questioning. Objective - Vital Signs/Intake and Output Vital Signs (last 24 hours): Temp Pulse Resp BP Pulse Ox 98.0 F 64 20 140/69 100 08/04/18 08:52 08/04/18 08:52 08/04/18 08:52 08/04/18 08:52 08/04/18 08:52 - Medications Medications: Current Medications Alprazolam (Xanax) 0.5 mg PO BID PRN PRN Reason: Anxiety Last Admin: 08/04/18 02:43 Dose: 0.5 mg Baclofen (Lioresal) 10 mg PO BID [facility] Last Admin: 08/03/18 19:14 Dose: 10 mg Folic Acid (Folic Acid) 1 mg PO DAILY [facility] Last Admin: 08/03/18 10:32 Dose: 1 mg Heparin Sodium (Porcine) (Heparin) 5,000 units SC Q8 [facility] Last Admin: 08/04/18 06:37 Dose: Not Given Influenza Virus Vaccine (Flucelvax Quad 3430-9651 Syr) 60 mcg IM .ONCE ONE Stop: 08/04/18 14:01 Multivitamins (Hexavitamin) 1 tab PO DAILY [facility] Last Admin: 02/27/19 10:32 Dose: 1 tab Oxycodone/Acetaminophen (Percocet 5/325 Mg Tab) 1 tab PO Q4H PRN PRN Reason: Pain, moderate (4-7) Stop: 08/06/18 16:01 Last Admin: 08/04/18 06:51 Dose: 1 tab Thiamine HCl (Vitamin B1 Tab) 100 mg PO DAILY [facility] Last Admin: 08/03/18 10:32 Dose: 100 mg - Labs Labs: 08/04/18 07:32 08/04/18 07:32 - Constitutional Appears: Non-toxic, No Acute Distress - Head Exam Head Exam: ATRAUMATIC, NORMAL INSPECTION, NORMOCEPHALIC - Eye Exam Eye Exam: EOMI, Normal appearance - ENT Exam ENT Exam: Mucous Membranes Moist, Normal Exam - Neck Exam Neck Exam: Normal Inspection - Respiratory Exam Respiratory Exam: Clear to Ausculation Bilateral, NORMAL BREATHING PATTERN - Cardiovascular Exam Cardiovascular Exam: REGULAR RHYTHM, +S1, +S2 - GI/Abdominal Exam GI & Abdominal Exam: Soft. absent: Distended, Tenderness Additional comments: no suprapubic tenderness to palpation - Extremities Exam Extremities Exam: Normal Inspection. 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 Lara Recurrent UTI -Urine cx(08/03): positive for gram - rods -start IV Abx, rocephin 1g qd -bladder scans prn -avoid straight cath/bermudez R/O acute MS flare MRI brain (07/24): interval mild improvement in findings of MS. Redemonstration of multiple subcortical and periventricular demyelinating plaques in right paramedian corpus callosum and left centrum semiovale. No evidence for active demyelination on current exam. Mild global parenchymal volume loss. -baclofen for spasticity -neurology consult, Dr. De Anda Abnormal EKG -LVH, early repolarization lead II -SANDRA negative -f/u echo Alcohol use disorder -xanax prn anxiety -multivitamins/folate/thiamine Deconditioning/Poor PO Intake -PT/OT, encpourage ambulation -encourage PO intake -supplements x3 -HHD Ppx VTE: heparin GI: not indicated Suicide precautions Fall precautions PT/OT Dispo: Patient medically cleared for psych treatment pending echo read. Pt is amenable to treatment. Discussed with Dr. Liang -Shyann Quezada, PGY-1 <Lotus Liang V - Last Filed: 08/05/18 22:41> Objective - Vital Signs/Intake and Output Vital Signs (last 24 hours): Temp Pulse Resp BP Pulse Ox 97.4 F L 70 20 121/77 98 08/05/18 16:00 08/05/18 16:00 08/05/18 16:00 08/05/18 16:00 08/05/18 16:00 - Labs Labs: 08/05/18 07:35 08/05/18 07:35 Attending/Attestation - Attestation I have personally seen and examined this patient.: Yes I have fully participated in the care of the patient.: Yes I have reviewed all pertinent clinical information, including history, physical exam and plan: Yes Notes (Text): This is late computer entry for 08/04/18. Patient seen, examined and case discussed with day-time resident. patient seen this morning noting he is feeling better compared to on admission. Neurology noted this is no MS flare given improvement on MRI; follow-up with outpatient neurology. Psychiatry on board. Though, I think there was misunderstanding between the patient and psychiatry because he was working with physical therapy and he was approached by psychiatry for possible aggression and prompting [facility] [place]. I spoke with patient at length following this occurence felt his personal space was being violated and didnt understand why he was being told he was doing bad when he felt better and being encouraged staff members. I spoke and updated with his pmd, Dr Ginette Russell throughout the day and she spoke with patient at bedside. patient regards Dr russell as his tarun and secure base and notes he trusts her and her recommendation. Patient started on empiric antibiotic for recurrent UTI. patient is amenable to help from psychiatry; has reservations in regards to being moved to the psychiatry unit since he does not know how he is going feel with others with their own personal problems. Pending echocardiogram completed.
[2018-08-04] MEDS: Multiple Vitamins Tab PO SCH (10:22)
[2018-08-04] MEDS ORDERED: cefTRIAXone IV 1 gm in Dextros 50 ML IVPB SCH (12:00)
[2018-08-04] MEDS ORDERED: Influenza Vaccine 60 mcg/0.5 mL SYR (4YR UP) IM ONE (14:00)
--- NOTE | 2018-08-04 23:16 | CARD ---
APPROVED REPORT Date of service: 08/04/2018 EXAM: Two-dimensional and M-mode echocardiogram with Doppler and color Doppler. Other Information Quality : GoodRhythm : INDICATION substance use/ fever RISK FACTORS Smoking 2D DIMENSIONS IVSd0.9 (0.7-1.1cm)LVDd4.1 (3.9-5.9cm) PWd1.0 (0.7-1.1cm)LA Shpcda31 (18-58mL) LVDs2.6 (2.5-4.0cm)FS (%) 35.6 % LVEF (%)65.7 (>50%)LVEF (Odell's)66.48 % IVC0.00 cm M-Mode DIMENSIONS RVDd1.58 (2.1-3.2cm)Left Atrium (MM)3.58 (2.5-4.0cm) IVSd0.79 (0.7-1.1cm)Aortic Root2.99 (2.2-3.7cm) LVDd4.82 (4.0-5.6cm)Aortic Cusp Exc.2.14 (1.5-2.0cm) PWd0.96 (0.7-1.1cm)FS (%) 35 % LVDs3.16 (2.0-3.8cm)LVEF (%)63 (>50%) Mitral Valve MV E Ilfimvuf86.2cm/sMV A Slufqtos09.2cm/sE/A ratio1.8 HOCH688.31 cm/s TDI Lateral E' Peak V14.22cm/sMedial E' Peak V9.45cm/sE/Lateral E'5.1 E/Medial E'7.7 Tricuspid Valve TR Peak [id number]/sTR Peak Gr.[id number] LEFT VENTRICLE The left ventricle is normal size. There is normal left ventricular wall thickness. Left ventricle systolic function is normal. The Ejection Fraction is 60-65%. There is normal LV segmental wall motion. The left ventricular diastolic function is normal. RIGHT VENTRICLE The right ventricle is normal size. There is normal right ventricular wall thickness. The right ventricular systolic function is normal. ATRIA The left atrium size is normal. The right atrium size is normal. The interatrial septum is intact with no evidence for an atrial septal defect. AORTIC VALVE The aortic valve is normal in structure. No aortic regurgitation is present. There is no aortic valvular stenosis. MITRAL VALVE The mitral valve is normal in structure. A mild mitral valve prolapse is present. There is no mitral valve stenosis. Mitral regurgitation is mild. TRICUSPID VALVE The tricuspid valve is normal in structure. There is mild tricuspid regurgitation. Right ventricular systolic pressure is estimated at less than 30 mmHg. There is no pulmonary hypertension. PULMONIC VALVE The pulmonic valve is not well visualized. There is no pulmonic valvular regurgitation. GREAT VESSELS The aortic root is normal in size. PERICARDIAL EFFUSION There is no significant pericardial effusion. <Conclusion> Left ventricle systolic function is normal. The Ejection Fraction is 60-65%. No aortic regurgitation is present. A mild mitral valve prolapse is present. Mitral regurgitation is mild. There is mild tricuspid regurgitation. There is no pulmonary hypertension. There is no pulmonic valvular regurgitation.
[2018-08-05] MEDS: Oxycodone/Acetaminophen 5/325 mg Tab PO PRN (02:21)
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
[2018-08-05 07:52] LABS: BASO % 0.9 % (0.0-2.0); EOS # 0.1 K/uL (0.0-0.7); HEMOGLOBIN 14.1 g/dL (12.0-18.0); LYMPH # 1.7 K/uL (1.0-4.3); LYMPH % 31.2 % (20.0-40.0); MEAN CELL VOLUME 87.2 fL (80.0-94.0); MEAN CORPUSCULAR HEMOGLOBIN 28.4 pg (27.0-31.0); MEAN CORPUSCULAR HGB CONC 32.6 g/dL (33.0-37.0); MEAN PLATELET VOLUME 8.2 fL (7.2-11.7); MONO # 0.5 K/uL (0.0-0.8); NEUT # 3.2 K/uL (1.8-7.0); NEUT % 57.9 % (50.0-75.0); RBC 4.97 Mil/uL (4.40-5.90); WHITE BLOOD COUNT 5.5 K/uL (4.8-10.8)
[2018-08-05 08:07] LABS: ALB/GLOB RATIO 1.7 (1.0-2.1); ALBUMIN 4.4 g/dL (3.5-5.0); ALT/SGPT 25 U/L (21-72); AST/SGOT 33 U/L (17-59); BLOOD UREA NITROGEN 16 mg/dL (9-20); CALCIUM 9.5 mg/dl (8.6-10.4); GFR NON-AFRICAN AMERICAN > 60
[2018-08-05] MEDS ORDERED: Cefepime IV 1 gm in Dextrose 1 GM/50 ML BAG IVPB SCH (10:15)
[2018-08-05] MEDS: Multiple Vitamins Tab PO SCH (12:09)
--- NOTE | 2018-08-05 13:11 | CP.PCM.PCO ---
Physician Communication Note - Physician Communication Note Physician Communication Note: See above
[2018-08-05 16:15] VITALS: BP 121/77; TEMP 97.4; O2SAT 98
--- NOTE | 2018-08-05 21:13 | CP.PCM.DIS ---
<Jerod Perez - Last Filed: 08/05/18 20:44> Provider - Provider Date of Admission: 08/02/18 16:08 Attending physician: Lotus Liang DO Consults: 08/02/18 16:11 Neurology Consult Routine Comment: Consulting Provider: Bharath De Anda Consulting Physician: Bharath De Anda Reason for Consult: MS flare 08/02/18 16:23 Pastoral Care Referral Routine Comment: Physician Instructions: Reason For Exam: depression, suicidal 08/02/18 17:59 Psychiatry Consult Routine Comment: Consulting Provider: Priya Lara Consulting Physician: Priya Lara Reason for Consult: Suicidal Ideations 08/03/18 12:14 Case Management Referral Routine Comment: [facility] him [facility], Physician Instructions: Reason For Exam: for disability, assisted living Reason for Referral: Ruby Engineer Dylan 08/05/18 10:48 Psychiatry Consult Routine Comment: was on paroxetine previously Consulting Provider: Vadim Rosales Consulting Physician: Vadim Rosales Reason for Consult: 2nd opinion, atypical depression, SI, hx of MS Time Spent in preparation of Discharge (in minutes): 180 Diagnosis - Discharge Diagnosis (1) Suicidal ideations Status: Acute (2) Multiple sclerosis Status: Chronic (3) Abdominal pain Status: Acute Hospital Course - Lab Results Lab Results: Micro Results 08/03/18 07:00 Urine,Clean Catch Urine Culture - Final Pseudomonas Aeruginosa Most Recent Lab Values WBC 5.5 K/uL (4.8-10.8) 08/05/18 07:35 RBC 4.97 Mil/uL (4.40-5.90) 08/05/18 07:35 Hgb 14.1 g/dL (12.0-18.0) 08/05/18 07:35 Hct 43.4 % (35.0-51.0) 08/05/18 07:35 MCV 87.2 fL (80.0-94.0) 08/05/18 07:35 MCH 28.4 pg (27.0-31.0) 08/05/18 07:35 MCHC 32.6 g/dL (33.0-37.0) L 08/05/18 07:35 RDW 14.0 % (11.5-14.5) 08/05/18 07:35 Plt Count 244 K/uL (130-400) 08/05/18 07:35 MPV 8.2 fL (7.2-11.7) 08/05/18 07:35 Neut % (Auto) 57.9 % (50.0-75.0) 08/05/18 07:35 Lymph % (Auto) 31.2 % (20.0-40.0) 08/05/18 07:35 [place] % (Auto) 9.0 % (0.0-10.0) 08/05/18 07:35 Eos % (Auto) 1.0 % (0.0-4.0) 08/05/18 07:35 Baso % (Auto) 0.9 % (0.0-2.0) 08/05/18 07:35 Neut # (Auto) 3.2 K/uL (1.8-7.0) 08/05/18 07:35 Lymph # (Auto) 1.7 K/uL (1.0-4.3) 08/05/18 07:35 [place] # (Auto) 0.5 K/uL (0.0-0.8) 08/05/18 07:35 Eos # (Auto) 0.1 K/uL (0.0-0.7) 08/05/18 07:35 Baso # (Auto) 0.0 K/uL (0.0-0.2) 08/05/18 07:35 Sodium 135 mmol/L (132-148) 08/05/18 07:35 Potassium 4.1 mmol/L (3.6-5.2) 08/05/18 07:35 Chloride 97 mmol/L (98-107) L 08/05/18 07:35 Carbon Dioxide 31 mmol/L (22-30) H 08/05/18 07:35 Anion Gap 10 (10-20) 08/05/18 07:35 BUN 16 mg/dL (9-20) 08/05/18 07:35 Creatinine 1.2 mg/dL (0.8-1.5) 08/05/18 07:35 Est GFR ( Amer) > 60 08/05/18 07:35 Est GFR (Non-Af Amer) > 60 08/05/18 07:35 Random Glucose 83 mg/dL (75-110) 08/05/18 07:35 Calcium 9.5 mg/dl (8.6-10.4) 08/05/18 07:35 Phosphorus 3.2 mg/dL (2.5-4.5) 08/05/18 07:35 Magnesium 1.8 mg/dL (1.6-2.3) 08/05/18 07:35 Total Bilirubin 0.5 mg/dL (0.2-1.3) 08/05/18 07:35 AST 33 U/L (17-59) 08/05/18 07:35 ALT 25 U/L (21-72) 08/05/18 07:35 Alkaline Phosphatase 88 U/L (38-126) 08/05/18 07:35 Total Creatine Kinase 70 U/L (55-170) 08/04/18 07:32 CK-MB (Mass) < 0.22 ng/mL (0.0-3.38) 08/04/18 07:32 Troponin I < 0.0120 ng/mL (0.00-0.120) 08/04/18 07:32 Total Protein 7.1 g/dL (6.3-8.3) 08/05/18 07:35 Albumin 4.4 g/dL (3.5-5.0) 08/05/18 07:35 Globulin 2.6 gm/dL (2.2-3.9) 08/05/18 07:35 Albumin/Globulin Ratio 1.7 (1.0-2.1) 08/05/18 07:35 Vitamin B12 870 pg/mL (239-931) 08/03/18 11:24 Folate 8.1 ng/mL 08/03/18 11:24 Free T4 1.05 ng/dL (0.78-2.19) 08/03/18 15:52 TSH 3rd Generation 0.43 mIU/L (0.46-4.68) L 08/02/18 14:33 Urine Color Yellow (YELLOW) 08/02/18 16:52 Urine Clarity Clear (Clear) 08/02/18 16:52 Urine pH 6.0 (5.0-8.0) 08/02/18 16:52 Ur Specific [place] 1.010 (1.003-1.030) 08/02/18 16:52 Urine Protein Negative mg/dL (NEGATIVE) 08/02/18 16:52 Urine Glucose (UA) Normal mg/dL (Normal) 08/02/18 16:52 Urine Ketones Negative mg/dL (NEGATIVE) 08/02/18 16:52 Urine Blood Negative (NEGATIVE) 08/02/18 16:52 Urine Nitrate Negative (NEGATIVE) 08/02/18 16:52 Urine Bilirubin Negative (NEGATIVE) 08/02/18 16:52 Urine Urobilinogen Normal mg/dL (0.2-1.0) 08/02/18 16:52 Ur Leukocyte Esterase 1+ Annetta/uL (Negative) H 08/02/18 16:52 Urine WBC (Auto) 11 /hpf (0-5) H 08/02/18 16:52 Urine RBC (Auto) 1 /hpf (0-3) 08/02/18 16:52 Ur Squamous Epith Cells 1 /hpf (0-5) 08/02/18 16:52 Urine Bacteria Occ (<OCC) H 08/02/18 16:52 Salicylates < 1.0 mg/dL 1 08/02/18 14:33 Urine Opiates Screen Negative (NEGATIVE) 08/02/18 16:52 Urine Methadone Screen Negative (NEGATIVE) 08/02/18 16:52 Acetaminophen < 10.0 ug/mL (10.0-30.0) L 08/02/18 14:33 Ur Barbiturates Screen Negative (NEGATIVE) 08/02/18 16:52 Ur Phencyclidine Scrn Negative (NEGATIVE) 08/02/18 16:52 Ur Amphetamines Screen Negative (NEGATIVE) 08/02/18 16:52 U Benzodiazepines Scrn Positive (NEGATIVE) 08/02/18 16:52 U Oth Cocaine Metabols Negative (NEGATIVE) 08/02/18 16:52 U Cannabinoids Screen Positive (NEGATIVE) H 08/02/18 16:52 Alcohol, Quantitative 24 mg/dl (0-10) H 08/02/18 14:33 RPR Nonreactive (NONREACTIVE) 08/03/18 11:24 - Hospital Course Hospital Course: On admission: 33 year old male with past medical history of MS as noted below presents to the ER for thoughts of suicide. Patient states for the past 6 months he has been feeling depressed however today he had a plan in place. He states his plan was to jump off a frances. He states yesterday he had an argument with his significant other. He states he has been feeling like less of a man and he feels like his 7 year old child may be seeing him a negative light. Patient st ates because of those feelings he has been drinking so he drank 3 beers and took 2 Xanax tablets to try and numb his feelings and has been detaching himself from his mother and kids. Patient denies chest pain, shortness of breath, palpations, nausea, vomiting, diarrhea, constipation, fever or chills. On hospitalization Patient is admitted for Possible MS flare, suicidal ideation and pseudomonal UTI. CT head shows No acute parenchymal, subarachnoid or extra-axial hemorrhage. Brain MRI shows Interval mild improvement in findings in this known MS. Redemonstration of multiple subcorticla and periventricular demyelinating plaques which appears less conspicuous in the subcortical white matter. Interval significant decrease in size of previously noted active demyelinating plaque in right paramedian corpus callosum and left centrum semiovale. No evidence of active demyelination on this current examination. Mild global parenchymal volume loss. Neurology Dr De Anda consult, which recommends outpatient neuro follow up. Patient was placed on suicidal precautions, placed on 1:1 at bedside, consult for Dr Lara, patient refused psych transfer and medications recommended and was later amendable for second psych opinion with Psych Dr Rosales. Xanax was given 0.5mg BID prn for anxiety and alcohol withdrawal. Paxil 40 mg PO daily originally which pt refused, but switched to paxil 20mg daily which patient took. Alcohol level 24, UDS positive for cannabinoids and benzo, Patient placed on Thiamine, Folic Acid Multivitamin for alcohol use. EKG showing repolarization in lead II, trops negative x 3, Echo (08/03): LVEF 60-65%, systolic function normal. Mild mitral valve prolapse, mild mitral regurgitation. UA + WBC, Leukocyte esterase; negative nitrate Urine culture: pseudomonas (+), Cefepime o rdered for patient to cover 4th gene gram negative coverage. 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 Patient placed on heparin SC 5000 Q8 and SCDs for DVT ppx and fall precaution, and PT/OT evaluation. On discharge on 08/05 nurse called house pager due to patient wanting to sign against medical advice. Upon encounter with patient alongside Attending Dr Liang, patient responds he feels "trapped" and fears he will "flare up" and that wants to be active and "feel the cold air" again, stating he wants to see his kids and be with them. Patient was explained that he is not currently stable for D/C, as per Attending, Psychiatrist Dr Lara and PMD, who patient has been in communication throughout patient's hospitalization course. Patient medically understands the reason that he is not being clear for discharge, however re- states he does want to go see his kids and needs to be with them. Patient states has called a friend to pick him up and is willing to follow with PMD on wednesday. PMD DR Russell and psychiatrist aware of all event. Patient's cell phone number collected at the time, to follow up with patient. Patient provided with 2 prescriptions: ciprofloxacin 500mg to take per mouth twice a day for 7 days, and Plaxil 10 mg per mouth to take twice a day. Patient will be following up with PMD dr Russell at [facility] this Wednesday. Patient signed AMA form, patient is competent and understand the risks of leaving, including permanent disability from complications of UTI including septic shock, which could lead to demise and , as well as recurrence of depression, leading to recurrence of suicidal ideation and . Patient had opportunity to ask questions, paper work has been filled, patient has been informed that he might return for care at the hospital at any time. This is a short summary of patient's hospitalization course, for more information please refer to patient's EMR. - Date & Time of H&P Date of H&P: 08/02/18 Time of H&P: 18:02 Discharge Exam - Head Exam Head Exam: ATRAUMATIC, NORMAL INSPECTION, NORMOCEPHALIC - Eye Exam Eye Exam: EOMI, Normal appearance - ENT Exam ENT Exam: Normal Exam - Respiratory Exam Respiratory Exam: NORMAL BREATHING PATTERN - Cardiovascular Exam Cardiovascular Exam: REGULAR RHYTHM - Neurological Exam Neurological exam: Alert, Oriented x3 - Psychiatric Exam Psychiatric exam: Anxious, Normal Affect, Normal Mood - Skin Skin Exam: Dry, Intact, Normal Color, Warm Discharge Plan - Discharge Medications Prescriptions: Ciprofloxacin [Cipro] 500 mg PO BID 7 Days #14 tab PARoxetine [Paxil] 10 mg PO BID 30 Days #60 tab - Follow Up Plan Condition: STABLE Disposition: AGAINST MEDICAL ADVICE Instructions: Suicide Prevention for Adults (DC), Suicide Prevention for Adults (GEN) <Lotus Liang V - Last Filed: 08/05/18 23:09> Provider - Provider Date of Admission: 08/02/18 16:08 Attending physician: Lotus Liang DO Consults: 08/02/18 16:11 Neurology Consult Routine Comment: Consulting Provider: Bharath De Anda Consulting Physician: Bharath De Anda Reason for Consult: MS flare 08/02/18 16:23 Pastoral Care Referral Routine Comment: Physician Instructions: Reason For Exam: depression, suicidal 08/02/18 17:59 Psychiatry Consult Routine Comment: Consulting Provider: Priya Lara Consulting Physician: Priya Lara Reason for Consult: Suicidal Ideations 08/03/18 12:14 Case Management Referral Routine Comment: [facility], Physician Instructions: Reason For Exam: for disability, assisted living Reason for Referral: Ruby Engineer Dylan 08/05/18 10:48 Psychiatry Consult Routine Comment: was on paroxetine previously Consulting Provider: Vadim Rosales Consulting Physician: Vadim Rosales Reason for Consult: 2nd opinion, atypical depression, SI, hx of MS Hospital Course - Lab Results Lab Results: Micro Results 08/03/18 07:00 Urine,Clean Catch Urine Culture - Final Pseudomonas Aeruginosa Most Recent Lab Values WBC 5.5 K/uL (4.8-10.8) 08/05/18 07:35 RBC 4.97 Mil/uL (4.40-5.90) 08/05/18 07:35 Hgb 14.1 g/dL (12.0-18.0) 08/05/18 07:35 Hct 43.4 % (35.0-51.0) 08/05/18 07:35 MCV 87.2 fL (80.0-94.0) 08/05/18 07:35 MCH 28.4 pg (27.0-31.0) 08/05/18 07:35 MCHC 32.6 g/dL (33.0-37.0) L 08/05/18 07:35 RDW 14.0 % (11.5-14.5) 08/05/18 07:35 Plt Count 244 K/uL (130-400) 08/05/18 07:35 MPV 8.2 fL (7.2-11.7) 08/05/18 07:35 Neut % (Auto) 57.9 % (50.0-75.0) 08/05/18 07:35 Lymph % (Auto) 31.2 % (20.0-40.0) 08/05/18 07:35 [place] % (Auto) 9.0 % (0.0-10.0) 08/05/18 07:35 Eos % (Auto) 1.0 % (0.0-4.0) 08/05/18 07:35 Baso % (Auto) 0.9 % (0.0-2.0) 08/05/18 07:35 Neut # (Auto) 3.2 K/uL (1.8-7.0) 08/05/18 07:35 Lymph # (Auto) 1.7 K/uL (1.0-4.3) 08/05/18 07:35 [place] # (Auto) 0.5 K/uL (0.0-0.8) 08/05/18 07:35 Eos # (Auto) 0.1 K/uL (0.0-0.7) 08/05/18 07:35 Baso # (Auto) 0.0 K/uL (0.0-0.2) 08/05/18 07:35 Sodium 135 mmol/L (132-148) 08/05/18 07:35 Potassium 4.1 mmol/L (3.6-5.2) 08/05/18 07:35 Chloride 97 mmol/L (98-107) L 08/05/18 07:35 Carbon Dioxide 31 mmol/L (22-30) H 08/05/18 07:35 Anion Gap 10 (10-20) 08/05/18 07:35 BUN 16 mg/dL (9-20) 08/05/18 07:35 Creatinine 1.2 mg/dL (0.8-1.5) 08/05/18 07:35 Est GFR ( Amer) > 60 08/05/18 07:35 Est GFR (Non-Af Amer) > 60 08/05/18 07:35 Random Glucose 83 mg/dL (75-110) 08/05/18 07:35 Calcium 9.5 mg/dl (8.6-10.4) 08/05/18 07:35 Phosphorus 3.2 mg/dL (2.5-4.5) 08/05/18 07:35 Magnesium 1.8 mg/dL (1.6-2.3) 08/05/18 07:35 Total Bilirubin 0.5 mg/dL (0.2-1.3) 08/05/18 07:35 AST 33 U/L (17-59) 08/05/18 07:35 ALT 25 U/L (21-72) 08/05/18 07:35 Alkaline Phosphatase 88 U/L (38-126) 08/05/18 07:35 Total Creatine Kinase 70 U/L (55-170) 08/04/18 07:32 CK-MB (Mass) < 0.22 ng/mL (0.0-3.38) 08/04/18 07:32 Troponin I < 0.0120 ng/mL (0.00-0.120) 08/04/18 07:32 Total Protein 7.1 g/dL (6.3-8.3) 08/05/18 07:35 Albumin 4.4 g/dL (3.5-5.0) 08/05/18 07:35 Globulin 2.6 gm/dL (2.2-3.9) 08/05/18 07:35 Albumin/Globulin Ratio 1.7 (1.0-2.1) 08/05/18 07:35 Vitamin B12 870 pg/mL (239-931) 08/03/18 11:24 Folate 8.1 ng/mL 08/03/18 11:24 Free T4 1.05 ng/dL (0.78-2.19) 08/03/18 15:52 TSH 3rd Generation 0.43 mIU/L (0.46-4.68) L 08/02/18 14:33 Urine Color Yellow (YELLOW) 08/02/18 16:52 Urine Clarity Clear (Clear) 08/02/18 16:52 Urine pH 6.0 (5.0-8.0) 08/02/18 16:52 Ur Specific [place] 1.010 (1.003-1.030) 08/02/18 16:52 Urine Protein Negative mg/dL (NEGATIVE) 08/02/18 16:52 Urine Glucose (UA) Normal mg/dL (Normal) 08/02/18 16:52 Urine Ketones Negative mg/dL (NEGATIVE) 08/02/18 16:52 Urine Blood Negative (NEGATIVE) 08/02/18 16:52 Urine Nitrate Negative (NEGATIVE) 08/02/18 16:52 Urine Bilirubin Negative (NEGATIVE) 08/02/18 16:52 Urine Urobilinogen Normal mg/dL (0.2-1.0) 08/02/18 16:52 Ur Leukocyte Esterase 1+ Annetta/uL (Negative) H 08/02/18 16:52 Urine WBC (Auto) 11 /hpf (0-5) H 08/02/18 16:52 Urine RBC (Auto) 1 /hpf (0-3) 08/02/18 16:52 Ur Squamous Epith Cells 1 /hpf (0-5) 08/02/18 16:52 Urine Bacteria Occ (<OCC) H 08/02/18 16:52 Salicylates < 1.0 mg/dL 1 08/02/18 14:33 Urine Opiates Screen Negative (NEGATIVE) 08/02/18 16:52 Urine Methadone Screen Negative (NEGATIVE) 08/02/18 16:52 Acetaminophen < 10.0 ug/mL (10.0-30.0) L 08/02/18 14:33 Ur Barbiturates Screen Negative (NEGATIVE) 08/02/18 16:52 Ur Phencyclidine Scrn Negative (NEGATIVE) 08/02/18 16:52 Ur Amphetamines Screen Negative (NEGATIVE) 08/02/18 16:52 U Benzodiazepines Scrn Positive (NEGATIVE) 08/02/18 16:52 U Oth Cocaine Metabols Negative (NEGATIVE) 08/02/18 16:52 U Cannabinoids Screen Positive (NEGATIVE) H 08/02/18 16:52 Alcohol, Quantitative 24 mg/dl (0-10) H 08/02/18 14:33 RPR Nonreactive (NONREACTIVE) 08/03/18 11:24 Attending/Attestation - Attestation I have personally seen and examined this patient.: Yes I have fully participated in the care of the patient.: Yes I have reviewed all pertinent clinical information, including history, physical exam and plan: Yes Notes (Text): Patient re-evaluated this evening given he is requesting to leave against medical advice. He reports his kids are texting him and he misses them and wants to see them but he does not them to know he is in the hospital. He reports he is dealing with case via varnish di[employer] for situation as well which he had finished a phone call as mariposa oseguera. Patient reports the paxil 20mg he told earlier did not sit well with him and he feels nauseous, patient ordered for Zofran; patient's PMD contacted/placed on speaker as well spoke with the patient given his situation of homelessness; he reports he has been sleepin in [employer] and has credit built with [employer] and he will be ok; he feels suffocated in the hospital and wants to go outside and continue to feel better and continue this mental of feeling better. I did speak with him and advised him that I believe he needs more time: 1) to allow the iv abx to work since he has having recurrent UTIs and failed outpatient therapy; he is aware he is likely will get uti again given his MS which is true, 2) to detail the paxil at regiment where he can tolerate it since the dose was too high for him for him personally; and notes he had only taken 10mg tab not 20mg tab in the past which was new to me and his PMD; though he is amenable to twice a day 10mg PO BID daily with his PMD, 3) per psych is not stable from their standpoint for discharge and 4) his PMD agrees that he would benefit from the additional to figure out these problems. In spite instruction by both me, pmd, and resident, patient wants to leave against medical advice and see his children. he has provided his cell number for contact; reports his phone is fully charged, and will to clinic on wednesday as a walkin as originally discussed with PMD earlier as well again at this time this evening. his cell provided to his PMD to followup with. Patient left against medical advice. with prescription for paxil 10mg PO BID and Ciprofloxacin 500mg PO BID to cover for uti. PMD on speaker phone and spoken with the patient as well regarding events noted throughout hospitalization. This is a brief summary of hospitalization. please refer to EMR for full detail of record. Patient intends to follow-up on Wednesday with PMD and reports he will come every day to the clinic to his PMD per discretion of PMD management. Discharge diagnoses: 1) Left against medical advice; refused inpatient psych earlier 2) depression 3) history of MS 4) Early repolarization
--- NOTE | 2018-08-06 00:59 | PCM.PYCHPN ---
Psychiatric Progress Note - Psychiatric Progress Note Patient seen today, length of contact: 15 min Patient Chief Complaint: I am feeling little better.' Problems Identified/Issues Discussed: Patient seen and evaluated, chart reviewed discussed with staff. Patient reports improvement in his mood and reports improvement in the paranoia. He reports some improvement in the hopelessness and helplessness. He is taking medication but denies any side effects. Supportive therapy was given Medication Change: Yes Medical Record Reviewed: Yes Mental Status Examination - Cognitive Function Orientation: Person, Place, Situation, Time Memory: Intact Attention: WNL Concentration: Poor Association: Loose Fund of Knowledge: WNL - Mood Mood: Depressed, Anxious - Affect Affect: Constricted, Depressed - Speech Speech: Soft - Formal Thought Process Formal Thought Process: Loosening of associations - Suicidal Ideation Suicidal Ideation: No - Homicidal Ideation Homicidal Ideation: No Goal/Treatment Plan - Goal/Treatment Plan Need for Continued Stay: Remain at risks for inpatient hospitalization Progress Toward Problem(s) and Goals/Treatment Plan: 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
--- NOTE | 2018-08-06 01:02 | PCM.PYCHPN ---
Psychiatric Progress Note - Psychiatric Progress Note Patient seen today, length of contact: 15 min Patient Chief Complaint: I am feeling much better.' Problems Identified/Issues Discussed: Patient seen and evaluated, chart reviewed discussed with staff. Patient reports improvement in his mood and reports improvement in feelings of hopelessness and helplessness. He denies any suicidal ideation/homicidal ideation/auditory hallucinations He is taking medication but denies any side effects. Supportive therapy was given PN: Patient discussed with Dr. Mathias. As per Dr. Mathias, patient has been compliant with the outpatient treatment, and he is coming for follow-ups regularly. He does not need to be committed. He would follow-up with Dr. Mathias after discharge. Medication Change: Yes Medical Record Reviewed: Yes Mental Status Examination - Cognitive Function Orientation: Person, Place, Situation, Time Memory: Intact Attention: WNL Concentration: WNL Association: WNL Fund of Knowledge: WNL - Mood Mood: Depressed, Anxious - Affect Affect: Constricted, Depressed - Speech Speech: Soft - Formal Thought Process Formal Thought Process: No Impairment - Suicidal Ideation Suicidal Ideation: No - Homicidal Ideation Homicidal Ideation: No Goal/Treatment Plan - Goal/Treatment Plan Need for Continued Stay: Remain at risks for inpatient hospitalization Progress Toward Problem(s) and Goals/Treatment Plan: 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
[2018-08-06 01:11] VITALS: PULSE 63
--- NOTE | 2018-08-07 08:33 | CARD ---
APPROVED REPORT Date of service: 08/03/2018 EKG Measurement Heart [id number] <Conclusion> Sinus bradycardia Voltage criteria for left ventricular hypertrophy Early repolarization Abnormal ECG
--- NOTE | 2018-08-07 08:37 | CARD ---
APPROVED REPORT Date of service: 08/03/2018 EKG Measurement Heart [id number] <Conclusion> Normal sinus rhythm with sinus arrhythmia Early repolarization Normal ECG
== END 2018-08-05 20:45 | disposition left against medical advice (07) | DRG 430 ==
LOC: C.ER 13:07 → C.9E 16:08 → C.3T 17:52 → C.9E 18:06 → C.6T 19:35
PROVIDERS: ADMIT Hospitalist; ATTEND Hospitalist
DX: F33.3 Major depressive disorder, recurrent, severe with psychotic symptoms (principal); G35 Multiple sclerosis; N31.2 Flaccid neuropathic bladder, not elsewhere classified; F10.239 Alcohol dependence with withdrawal, unspecified; F41.9 Anxiety disorder, unspecified; I34.1 Nonrheumatic mitral (valve) prolapse; Y90.1 Blood alcohol level of 20-39 mg/100 ml; Z59.0 Homelessness; F17.210 Nicotine dependence, cigarettes, uncomplicated

== ENCOUNTER 2018-08-26 11:26 | Outpatient (CLI) | payer OTHER | END 2018-08-26 11:27 | disposition home or self-care (01) | LOC: C.RADH 11:26 ==